=== PATIENT | female | born 1985 ===

== ENCOUNTER 2017-01-03 10:58 | Emergency (ER) | payer OTHER ==
[~2017-01-03] VITALS: Ht 162.6 cm; Wt 71.7 kg
[~2017-01-03 10:58] MED LIST: TESSALON PERLE100 MG PO; ZOFRAN ODT4 MG PO
--- NOTE | 2017-01-03 12:06 | ED GI/GU/ABDOMINAL COMPLAINT ---
History of Present Illness General Chief Complaint: Abdominal Pain/Flank Pain Stated Complaint: TOOK A POSITIVE PREG TEST NOW ABDOMINAL PAIN Source: patient, family, old records Exam Limitations: no limitations Vital Signs & Intake/Output Vital Signs & Intake/Output Vital Signs Date Time Temp Pulse Resp B/P Pulse O2 O2 Flow FiO2 Ox Delivery Rate 01/03 1325 74 18 112/54 100 Room Air 01/03 1114 99.1 80 18 150/83 98 Room Air Allergies Coded Allergies: NO KNOWN ALLERGIES (01/03/17) Reconcile Medications Amoxicillin/Potassium Clav (Augmentin 875-125 Tablet) 875 MG-125 MG TABLET 1 TAB PO BID uti Triage Note: PT STATES THAT SHE TOOK POSITIVE PREGNACY TEST AT HOME 12/26 AND STATES THAT SHE HAS BEEN HAVING INTERMITTANT LOW ABD CRAMPING. DENIES N/V/D DENIES BLEEDING Triage Nurses Notes Reviewed? yes LMP (ages 10-50): 11/24/16 ? Y Is pt currently ? No Onset: Abrupt Duration: week(s): (1), constant, waxing and waning Timing: recent history Quality/Severity: aching, cramping Severity Numbers: 4 Location: suprapubic Radiation: no radiation Activities at Onset: none Prior Abdominal Problems: none No Modifying Factors: none Associated Symptoms: DENIES HPI: This is a 31-year-old female who presents emergency room after she states she took a home positive test on December 26 and planning today of a one-week history of suprapubic crampy abdominal pain nonradiating 4 out of 10. The patient states her last menstrual cycle was November 24 this is her first . She has not established care with an warehouse foreman yet. She denies any urinary symptoms vaginal bleeding or discharge. No fever no chills. No history of abdominal surgeries in the past. She has not taken anything for her pain and there are no modifying factors otherwise she denies any back pain no new sexual partners no history of STD in the past (MILLER EASTMAN) Past History Travel History Traveled to [place] past 21 day No Medical History Any Pertinent Medical History? none Neurological: NONE EENT: NONE Cardiovascular: NONE Respiratory: NONE Gastrointestinal: NONE Hepatic: NONE Renal: NONE Musculoskeletal: NONE Psychiatric: NONE Endocrine: NONE Blood Disorders: NONE Cancer(s): NONE TRAVEL CLERK/Reproductive: NONE Surgical History Surgical History: none Psychosocial History What is your primary language German Tobacco Use: Never used ETOH Use: denies use Illicit Drug Use: denies illicit drug use Family History Hx Contributory? No (MILLER EASTMAN) Review of Systems Review of Systems Constitutional: Reports: see HPI. All Other Systems: Reviewed and Negative Comments Review of systems: See HPI, All other systems negative. Constitutional, no chills no fever, no malaise HEENT: No visual changes no sore throat no congestion, Cardiovascular: No chest pain , no palpitation , Skin, no jaundice no rashes, no change in skin Respiratory: No dyspnea no cough no sputum n GI: No nausea no vomiting, no diarrhea : No dysuria No hematuria, no frequency, no discharge Muscle skeletal: No joint pain, no joint swelling, no back pain, no neck pain, Neurologic: No numbness no headache Psych: No stress Heme/endocrine: No bruising no bleeding Immunology: No lymphadenopathy (MILLER EASTMAN) Physical Exam Physical Exam General Appearance: well developed/nourished, no apparent distress, alert, awake , comfortable Gastrointestinal: soft, tenderness Comments: Well-developed well-nourished person in no acute distress HEENT: Normal EENT exam; PERRL, EOMI, . HEAD is atraumatic. moist mucous membranes. Neck: Supple, normal range of motion Back: Nontender, no CVA tenderness. Full range of motion Cardiovascular: Regular rate and rhythms no murmurs rubs RespiratoryNo respiratory distress. Patient speaking in full complete sentences. Breath sounds clear to auscultation bilaterally: NO W/R/R Abdomen: Soft, mild suprapubic tenderness to palpation, no right lower quadrant tenderness negative Rovsing sign nondistended, no appreciable organomegaly. Normal bowel sounds. No rebound/guarding Extremity: No edema, full range of motion of extremities Neuro: Alert oriented x3, motor sensory normal,. There were no obvious focal neurologic abnormalities. Skin: No appreciable rash on exposed skin, skin is warm and dry. Psych: Mood and affect is normal, memory and judgment is normal. Core Measures ACS in differential dx? No Severe Sepsis Present: No Septic Shock Present: No (MILLER EASTMAN) Progress Differential Diagnosis: appendicitis, biliary colic, bowel obstruction, diverticulitis, ectopic , gastritis, hepatitis, inflamm bowel dis, intrauterine , PID/cervicitis, peptic ulcer, PUD/GERD, perforated viscous, SBO, threatened AB, UTI/pyelo Plan of Care: Orders Procedure Date/time Status Add-on Test (ER Only) 01/03 130 Active CULTURE,URINE 01/03 1205 Active URINE 01/03 1127 Complete URINALYSIS 01/03 1127 Complete HUMAN BETA HCG TITRE 01/03 1127 Complete COMPREHENSIVE METABOLIC PANEL 01/03 1127 Complete CBC WITHOUT DIFFERENTIAL 01/03 1127 Complete RHOGAM WORK-UP 01/03 1127 Complete Laboratory Tests 01/03/17 1205: Urinalysis LIGHT H, Urine Color YEL, Urine Clarity HAZY H, Urine pH 6.0, Ur Specific Duncan 1.010, Urine Protein NEG, Urine Ketones NEG, Urine Nitrite NEG, Urine Bilirubin NEG, Urine Urobilinogen 0.2, Ur Leukocyte Esterase LARGE H, Ur Microscopic SEDIMENT EXAMINED, Urine RBC 1-3, Urine WBC 25-50 H, Ur Epithelial Cells MOD H, Urine Bacteria FEW H, Urine Hemoglobin NEG, Urine Glucose NEG, Urine Test POSITIVE 01/03/17 1204: Anion Gap 11, Estimated GFR > 60, BUN/Creatinine Ratio 10.0, Glucose 92, Calcium 9.7, Total Bilirubin 0.5, AST 18, ALT 16, Alkaline Phosphatase 73, Total Protein 7.6, Albumin 4.1, Globulin 3.5, Albumin/Globulin Ratio 1.2, Beta HCG, Quant 6015.2, CBC w Diff NO MAN DIFF REQ, RBC 5.30, MCV 70.5 L, MCH 23.1 L, RDW 16.9 H, MPV 8.6, Gran % 67.0, Lymphocytes % 25.4, Monocytes % 5.3, Eosinophils % 1.8 , Basophils % 0.5, Absolute Granulocytes 4.8, Absolute Lymphocytes 1.8, Absolute Monocytes 0.4, Absolute Eosinophils 0.1, Absolute Basophils 0, PUBS MCHC 32.8 L Microbiology 01/03 1205 URINE ROUT: Urine Culture - RECD Labs ordered old records reviewed ultrasound ordered Case discussed with I discussed the patient playful per lab results again she denies any urinary complaints I discussed with her at length her ultrasound findings, information is provided for follow-up with TRAVEL CLERK which advised she follow up with today for follow-up evaluation either tomorrow or Sunday, advised return anytime sooner if she develops worsening pain fever chills or any other concerns answered her questions they feel comfortable plan cleared for discharge (MILLER EASTMAN) Diagnostic Imaging: Viewed by Me: Ultrasound. Discussed w/RAD: Ultrasound. Radiology Impression: PATIENT: LETICIA PIÑA PRESENT AGE: 31 PATIENT ACCOUNT NO: [id number] : 85 LOCATION: [facility] ORDERING PHYSICIAN: MILLER KHAN SERVICE DATE: 01/03/17 EXAM TYPE: US - US TRANSVAG EXAMINATION: US TRANSVAGINAL CLINICAL INFORMATION: Supra pubic abdominal pain. Positive last week. COMPARISON: None TECHNIQUE: Transabdominal ultrasound the pelvis is performed. FINDINGS: On transabdominal ultrasound the uterus measures 7.7 cm in length, 4.7 cm AP and 6.02 cm in transverse dimension. Left ovary measures 4.9 x 2.7 x 2.5 cm but normal Doppler flow seen. On transvaginal ultrasound the uterus is homogeneous in echotexture measuring 9.2 cm in length, 4.3 cm in AP and 5.7 cm wide. Cervix measures 2.97 cm in length there is a intrauterine distal with visualization of yolk sac. No pole seen at at this time the gestational sac measures 0.65 and 0.69 cm. Yolk sac measures 0.2 cm. Right ovary measures 2.9 x 1.6 x 2.2 cm and 5.34 mL. Left ovary measures 3.4 x 2.0 x 3.0 cm and 10.6 mL volume. There is a complex anechoic cyst measuring 1.6 x 1.4 x 1.6 cm. IMPRESSION: There is intrauterine distal sac with visualization of yolk sac. The pole is 98 seen due to early right There is a complex corpus luteal cyst in left ovary suspected. Right ovary is unremarkable. There is no free fluid in cul-de- sac. Recommend follow-up after 1-2 weeks. DICTATED BY: GAEL COLMENARES MD DATE/TIME DICTATED:01/03/171327 ELECTRONICS SUPERVISOR:BUDDY DATE/TIME TRANSCRIBED:1327 CONFIDENTIAL, DO NOT COPY WITHOUT APPROPRIATE AUTHORIZATION. < Electronically signed in Other Vendor System> SIGNED BY: GAEL COLMENARES MD 1338 Initial ED EKG: none (MILLER EASTMAN) Departure Departure Time of Disposition: 1358 Disposition: HOME OR SELF CARE Condition: Stable Clinical Impression Primary Impression: Intrauterine Secondary Impressions: UTI (urinary tract infection) Referrals: PATIENT HAS NO PRIMARY CARE DR (PCP/Family) BRISEIDA HARRELL MD Additional Instructions: Follow-up with warehouse foreman Dr. reynolds this week. Augmentin as directed for urinary tract infection this was sent to your [facility] pharmacy in [place]. Tylenol if needed for pain. Return anytime sooner with any concerns including if you developed vaginal bleeding discharge fever chills or any other concerns Departure Forms: Customer Survey General Discharge Information Prescriptions: Current Visit Scripts Amoxicillin/Potassium Clav (Augmentin 875-125 Tablet) 1 TAB PO BID #14 TAB (MILLER EASTMAN) PA/ACCOUNT DIRECTOR Co-Sign Statement Statement: ED Attending supervision documentation- x I saw and evaluated the patient. I have also reviewed all the pertinent lab results and diagnostic results. I agree with the findings and the plan of care as documented in the PA's/ACCOUNT DIRECTOR's documentation. [] I have reviewed the ED Record and agree with the PA's/ACCOUNT DIRECTOR's documentation. [] Additions or exceptions (if any) to the PAs/ACCOUNT DIRECTOR's note and plan are summarized below: [] (STEVEN DICKERSON,LY)
[2017-01-03 12:26] LABS: ABSOLUTE BASOPHIL COUNT 0 /CUMM (0.0-0.2); ABSOLUTE EOSINOPHIL COUNT 0.1 /CUMM (0.0-0.7); ABSOLUTE GRANULOCYTE CT 4.8 /CUMM (1.4-6.5); ABSOLUTE LYMPH COUNT 1.8 /CUMM (1.2-3.4); ABSOLUTE MONOCYTE COUNT 0.4 /CUMM (0.10-0.60); BASOPHIL % 0.5 % (0.0-2.0); EOSINOPHIL % 1.8 % (0-5); HEMATOCRIT 37.4 % (37-47); MEAN CORPUSCULAR HGB 23.1 PG (27.0-31.0); MEAN CORPUSCULAR HGB CONC 32.8 G/DL (33.0-37.0); MEAN CORPUSCULAR VOLUME 70.5 FL (81.0-99.0); MEAN PLATELET VOLUME 8.6 FL (7.4-10.4); PLATELET COUNT 359 /CUMM (130-400); RBC DISTRIBUTION WIDTH 16.9 % (11.5-14.5); WHITE BLOOD CELL COUNT 7.2 /CUMM (4.8-10.8)
[2017-01-03 13:25] VITALS: BP 112/54
--- NOTE | 2017-01-03 13:38 | ULTRASOUND REPORT ---
EXAMINATION: US TRANSVAGINAL CLINICAL INFORMATION: Supra pubic abdominal pain. Positive last week. COMPARISON: None TECHNIQUE: Transabdominal ultrasound the pelvis is performed. FINDINGS: On transabdominal ultrasound the uterus measures 7.7 cm in length, 4.7 cm AP and 6.02 cm in transverse dimension. Left ovary measures 4.9 x 2.7 x 2.5 cm but normal Doppler flow seen. On transvaginal ultrasound the uterus is homogeneous in echotexture measuring 9.2 cm in length, 4.3 cm in AP and 5.7 cm wide. Cervix measures 2.97 cm in length there is a intrauterine distal with visualization of yolk sac. No pole seen at at this time the gestational sac measures 0.65 and 0.69 cm. Yolk sac measures 0.2 cm. Right ovary measures 2.9 x 1.6 x 2.2 cm and 5.34 mL. Left ovary measures 3.4 x 2.0 x 3.0 cm and 10.6 mL volume. There is a complex anechoic cyst measuring 1.6 x 1.4 x 1.6 cm. IMPRESSION: There is intrauterine distal sac with visualization of yolk sac. The pole is 98 seen due to early right There is a complex corpus luteal cyst in left ovary suspected. Right ovary is unremarkable. There is no free fluid in cul-de-sac. Recommend follow-up after 1-2 weeks.
[2017-01-03] MEDS ORDERED: AUGMENTIN 875-1 EACH PO (14:01)
== END 2017-01-03 14:08 ==
LOC: ERH 10:58
PROVIDERS: Physician Assistant Medical
DX: O23.41 Unspecified infection of urinary tract in pregnancy, first trimester (principal); Z3A.00 Weeks of gestation of pregnancy not specified
CPT/HCPCS: 76817; 81001; 81025; 87086

== ENCOUNTER 2017-01-21 22:14 | Emergency (ER) | payer OTHER ==
[~2017-01-21] VITALS: Ht 162.6 cm; Wt 68.0 kg
[~2017-01-21 22:14] MED LIST changes: +AUGMENTIN 875-1 EACH PO
[2017-01-21 22:20] VITALS: BP 113/67
[2017-01-21] MEDS ORDERED: ZOFRAN ODT4 M1 SL (22:42)
--- NOTE | 2017-01-21 22:42 | ED HEADACHE COMPLAINT ---
History of Present Illness General Chief Complaint: Headache Stated Complaint: PT HAS A MIGRAINE Source: patient Exam Limitations: no limitations Vital Signs & Intake/Output Vital Signs & Intake/Output Vital Signs Date Time Temp Pulse Resp B/P Pulse O2 O2 Flow FiO2 Ox Delivery Rate 01/21 2220 98.1 92 18 113/67 95 Room Air ED Intake and Output 01/22 0000 01/21 1200 Intake Total Output Total Balance Patient 150 lb Weight Allergies Coded Allergies: NO KNOWN ALLERGIES (01/03/17) Reconcile Medications Ondansetron (Zofran Odt) 4 MG TAB.RAPDIS 1 TAB SL TID nausea Triage Note: PT 7 WEEKS TO TRIAGE WITH C/O HEADACHE 08/14, NAUSEA SINCE YESTERDAY. PT TOOK TYLENOL TODAY WITH NO PAIN RELIEF. OBGYN VISIT ON 01/18. . Triage Nurses Notes Reviewed? yes Onset: Gradual Duration: day(s):, waxing and waning Timing: recent history Quality/Severity: moderate Head Injury Location: global Modifying Factors: Improves With: medication, rest. Associated Symptoms: headache, mild nausea : Yes Patient currently breastfeeds: No HPI: 31 yo woman 7 weeks , h/o migraine, presents with headache consistent with prior migraines, associated with nausea, sound sensitivity, diffuse headache x 1-2 days. She notes no abdominal cramps, vaginal bleeding, dysuria. She is otherwise well. Past History Travel History Traveled to [place] past 21 day No Medical History Any Pertinent Medical History? see below for history Neurological: NONE EENT: NONE Cardiovascular: NONE Respiratory: NONE Gastrointestinal: NONE Hepatic: NONE Renal: NONE Musculoskeletal: NONE Psychiatric: NONE Endocrine: NONE Blood Disorders: NONE Cancer(s): NONE CABLE SUPERVISOR/Reproductive: NONE Surgical History Surgical History: none Psychosocial History What is your primary language Georgian Tobacco Use: Never used Family History Hx Contributory? No Review of Systems Review of Systems Constitutional: Reports: no symptoms. Eyes: Reports: no symptoms. Ears, Nose, Throat, Mouth: Reports: no symptoms. Respiratory: Reports: no symptoms. Cardiovascular: Reports: no symptoms. Gastrointestinal/Abdominal: Reports: no symptoms. Genitourinary: Reports: no symptoms. Musculoskeletal: Reports: no symptoms. Skin: Reports: no symptoms. Neurological/Psychological: Reports: no symptoms. Hematologic/Endocrine: Reports: no symptoms. Endocrine: Reports: no symptoms. Immunologic/Allergic: Reports: no symptoms. All Other Systems: Reviewed and Negative Physical Exam Physical Exam General Appearance: well developed/nourished, mild distress Head: atraumatic, normal appearance, diffuse scalpe muscular tenderness to palpation. Eyes: Bilateral: normal appearance. Ears, Nose, Throat: normal pharynx, normal ENT inspection Neck: normal inspection, supple, full range of motion Respiratory: normal breath sounds, chest non-tender, no respiratory distress, quiet respiration, lungs clear Cardiovascular: regular rate/rhythm Gastrointestinal: normal bowel sounds, soft, non-tender, no organomegaly Back: normal inspection Extremities: normal inspection, normal capillary refill, normal range of motion, no edema Psychiatric: awake, alert, oriented x 3 Cranial Nerves: normal hearing, normal speech, PERRL Coordination/Gait: normal finger to nose, normal gait Motor/Sensory: no motor/sensory deficits Reflexes: 1+: bicep (R), bicep (L). Skin: intact, normal color, warm/dry Core Measures Severe Sepsis Present: No Septic Shock Present: No Progress Differential Diagnosis: cluster HINES, meningitis, musculoskeletal pain, tension HINES Plan of Care: pt given supportive medications, safe in ... advocated close follow up with pmd and automatic quilling machine operator. Departure Departure Disposition: HOME OR SELF CARE Condition: Stable Clinical Impression Primary Impression: Headache Secondary Impressions: Referrals: PATIENT HAS NO PRIMARY CARE DR (PCP/Family) Departure Forms: Customer Survey General Discharge Information Prescriptions: Current Visit Scripts Ondansetron (Zofran Odt) 1 TAB SL TID #10 TAB Comments pt given acetaminophen and zofran... encouraged close follow up with pmd and automatic quilling machine operator.
== END 2017-01-21 23:09 ==
LOC: ERH 22:14
DX: O99.89 Other specified diseases and conditions complicating pregnancy, childbirth and the puerperium (principal); R51 Headache; Z3A.01 Less than 8 weeks gestation of pregnancy
CPT/HCPCS: J3101

== ENCOUNTER 2017-02-25 22:41 | Emergency (ER) | payer OTHER ==
[~2017-02-25] VITALS: Ht 160 cm; Wt 68.0 kg
[~2017-02-25 22:41] MED LIST changes: +ZOFRAN ODT4 M1 SL
[2017-02-25 22:51] VITALS: BP 109/71
[2017-02-25 23:24] LABS: ABSOLUTE BASOPHIL COUNT 0 /CUMM (0.0-0.2); ABSOLUTE EOSINOPHIL COUNT 0.1 /CUMM (0.0-0.7); ABSOLUTE LYMPH COUNT 1.6 /CUMM (1.2-3.4); ABSOLUTE MONOCYTE COUNT 0.5 /CUMM (0.10-0.60); BASOPHIL % 0.2 % (0.0-2.0); EOSINOPHIL % 1.3 % (0-5); GRANULOCYTE % 72.3 % (42.2-75.2); HEMATOCRIT 33.6 % (37-47); MEAN CORPUSCULAR HGB 23.5 PG (27.0-31.0); MEAN CORPUSCULAR HGB CONC 32.4 G/DL (33.0-37.0); MEAN CORPUSCULAR VOLUME 72.4 FL (81.0-99.0); MEAN PLATELET VOLUME 8.7 FL (7.4-10.4); PLATELET COUNT 296 /CUMM (130-400); RBC DISTRIBUTION WIDTH 17.1 % (11.5-14.5); RED BLOOD CELL CT 4.64 /CUMM (4.20-5.40); WHITE BLOOD CELL COUNT 8.2 /CUMM (4.8-10.8)
--- NOTE | 2017-02-26 00:26 | ED GI/GU/ABDOMINAL COMPLAINT ---
History of Present Illness General Chief Complaint: Female Urogenital Problems Stated Complaint: PT IS 3MONTHS AND BLOOD SPOTS Source: patient Exam Limitations: no limitations Vital Signs & Intake/Output Vital Signs & Intake/Output Vital Signs Date Time Temp Pulse Resp B/P B/P Pulse O2 O2 Flow FiO2 Mean Ox Delivery Rate 02/25 2251 99.1 86 20 109/71 99 Room Air ED Intake and Output 02/26 0000 02/25 1200 Intake Total Output Total Balance Patient 150 lb Weight Weight Reported by Patient Measurement Method Allergies Coded Allergies: No Known Allergies (02/25/17) Reconcile Medications Ondansetron (Zofran Odt) 4 MG TAB.RAPDIS 1 TAB SL TID nausea Triage Note: TRIAGE: PT TO ER C/C LOW ABD PAIN AND VAGINAL BLEEDING. ONSET OF S/S THIS MORNING. PAIN HAS BEEN CONSTANT SINCE ONSET AND WORSENING SINCE 18:00. ALSO REPORTS PAIN FROM RUQ ABD INTO R FLANK AREA, INTERMITTENT X 3 DAYS BUT MORE CONSTANT X 2 DAYS. HAS HAD SPOTTING BLOOD, BRIGHT RED IN COLOR. HAS BEEN USING [facility] FOR SAME. PT CURRENTLY 12 WEEKS , LMP 11/24/2016, DUE DATE 09/01/2017. . RESOLUTION REP DR COLEMAN. REPORTS ALSO HX OF SWELLING TO [facility] 6 YEARS AGO AND FELT SIMILIAR PAIN TO RUQ ABD INTO BACK. SPOKE WITH RENZO SON IN CBC, PT TO REMAIN IN ER FOR EVAL. Triage Nurses Notes Reviewed? yes ? y Is pt currently ? No Onset: Gradual Duration: hour(s):, waxing and waning Timing: recent history Quality/Severity: cramping Location: vaginal Radiation: no radiation Activities at Onset: none Prior Abdominal Problems: none Modifying Factors: Improves With: rest. Associated Symptoms: vaginal bleeding HPI: 31 yo woman 3 months with normally progressing , presents with lower abdominal cramps and vaginal bleeding that began several hours ago. She notes the bleeding was bright red, with a few clots, 4-5 pads total. She notes that the bleeding is subsiding. She shares that her prior u/s have been normal. She is otherwise well, without dysuria, chills, fever, other vaginal discharge. Past History Travel History Traveled to [place] past 21 day No Medical History Any Pertinent Medical History? see below for history Neurological: NONE EENT: NONE Cardiovascular: NONE Respiratory: NONE Gastrointestinal: NONE Hepatic: NONE Renal: NONE Musculoskeletal: NONE Psychiatric: NONE Endocrine: NONE Blood Disorders: NONE Cancer(s): NONE SOCIAL WORK THERAPIST/Reproductive: NONE Surgical History Surgical History: none Psychosocial History What is your primary language Azeri Tobacco Use: Never used ETOH Use: denies use Illicit Drug Use: denies illicit drug use Family History Hx Contributory? No Review of Systems Review of Systems Constitutional: Reports: no symptoms. EENTM: Reports: no symptoms. Respiratory: Reports: no symptoms. Cardiovascular: Reports: no symptoms. GI: Reports: no symptoms. Genitourinary: Reports: no symptoms. Musculoskeletal: Reports: no symptoms. Skin: Reports: no symptoms. Neurological/Psychological: Reports: no symptoms. Hematologic/Endocrine: Reports: no symptoms. Immunologic/Allergic: Reports: no symptoms. All Other Systems: Reviewed and Negative Physical Exam Physical Exam General Appearance: well developed/nourished, mild distress Head: atraumatic, normal appearance Eyes: Bilateral: normal appearance. Ears, Nose, Throat, Mouth: hearing grossly normal Neck: normal inspection Respiratory: normal breath sounds, chest non-tender, no respiratory distress, quiet respiration, lungs clear Cardiovascular: regular rate/rhythm Gastrointestinal: normal bowel sounds, soft, non-tender Pelvic: pt declines Back: normal inspection Extremities: normal range of motion Neurologic/Psych: no motor/sensory deficits, awake, alert, oriented x 3 Skin: intact Comments: bedside u/s by edmd... movement is vigorous with heart movement approximately 150 bpm... ample amniotic fluid. Core Measures ACS in differential dx? No Severe Sepsis Present: No Septic Shock Present: No Progress Differential Diagnosis: threatened miscarriage vs other. Plan of Care: Orders Procedure Date/time Status HUMAN BETA HCG TITRE 02/25 2253 Complete COMPREHENSIVE METABOLIC PANEL 02/25 2253 Complete CBC WITHOUT DIFFERENTIAL 02/25 2253 Complete Laboratory Tests 02/25/17 2312: Anion Gap 12, Estimated GFR > 60, BUN/Creatinine Ratio 7.5, Glucose 89, Calcium 9.3, Total Bilirubin 0.3, AST 16, ALT 26, Alkaline Phosphatase 57, Total Protein 6.7, Albumin 3.5, Globulin 3.2, Albumin/Globulin Ratio 1.1, Beta HCG, Quant 17225.0, CBC w Diff NO MAN DIFF REQ, RBC 4.64, MCV 72.4 L, MCH 23.5 L, RDW 17.1 H, MPV 8.7, Gran % 72.3, Lymphocytes % 19.6 L, Monocytes % 6.6, Eosinophils % 1.3, Basophils % 0.2, Absolute Granulocytes 6.0, Absolute Lymphocytes 1.6, Absolute Monocytes 0.5, Absolute Eosinophils 0.1, Absolute Basophils 0, PUBS MCHC 32.4 L Initial ED EKG: none Departure Departure Disposition: HOME OR SELF CARE Condition: Stable Clinical Impression Primary Impression: Threatened miscarriage Referrals: TRENT MCCONNELL MD (PCP/Family) Departure Forms: Customer Survey General Discharge Information Comments 02/26/17, 0:36am... pt comfortable in bed... labs benign, blood type b+... pt declines pelvic exam... bedside u/s by edmd... ample movement with heart at [address] pt [address] mcconnell later today.
== END 2017-02-26 00:57 ==
LOC: ERH 22:41
PROVIDERS: Pediatrics
DX: O20.0 Threatened abortion (principal)

== ENCOUNTER 2017-03-28 21:29 | Emergency (ER) | payer OTHER ==
--- NOTE | 2017-03-28 22:02 | ED GI/GU/ABDOMINAL COMPLAINT ---
History of Present Illness General Chief Complaint: Female Urogenital Problems Stated Complaint: 16 WKS PREG, ABD. PAIN, VAGINAL BLEEDING Source: patient, family Exam Limitations: no limitations Vital Signs & Intake/Output Vital Signs & Intake/Output Vital Signs Date Time Temp Pulse Resp B/P B/P Pulse O2 O2 Flow FiO2 Mean Ox Delivery Rate 03/28 2253 72 20 101/60 98 03/28 2140 98.0 77 20 108/71 Allergies Coded Allergies: No Known Allergies (02/25/17) Reconcile Medications No Known Home Medications Triage Note: PER PT ABD PAIN, BACK PAIN AND VAGINAL BLEEDING 16 WEEKS TOOK TYLENO LAT HOME LAST AT 1430 Triage Nurses Notes Reviewed? yes ? Y Is pt currently ? No Onset: Abrupt Duration: hour(s): (few) Timing: multiple episodes today Quality/Severity: mild, moderate Location: vaginal Activities at Onset: transvaginal u/s No Modifying Factors: none Associated Symptoms: ANXIETY HPI: This is a 31-year-old female at 16 weeks bracket (LMP 11/24) gestation and presents to the ER for chief complaint of vaginal bleeding after her transvaginal ultrasound today. She reported some lower abdominal cramping, some vaginal spotting and some brownish discharge. She called Dr. Mcconnell's office and asked her to come back tomorrow to the office for reevaluation. She was also instructed for pelvic rest and to not lift any heavy materials. The ultrasound in the office today showed that everything was fine according to the patient. Past History Travel History Traveled to [place] past 21 day No Medical History Any Pertinent Medical History? 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 No Review of Systems Review of Systems Constitutional: Denies: see HPI, fever. EENTM: Reports: no symptoms. Respiratory: Denies: cough, short of breath. Cardiovascular: Denies: chest pain. GI: Denies: abdominal pain, nausea, vomiting. Genitourinary: Reports: see HPI (VAGINAL SPOTTING). Musculoskeletal: Reports: no symptoms. Skin: Reports: no symptoms. Neurological/Psychological: Reports: anxiety. Hematologic/Endocrine: Reports: bleeding. Denies: bruising. Immunologic/Allergic: Denies: splenectomy. All Other Systems: Reviewed and Negative Physical Exam Physical Exam General Appearance: well developed/nourished, alert, awake, anxious Head: atraumatic, normal appearance Eyes: Bilateral: normal appearance, PERRL, EOMI. Ears, Nose, Throat, Mouth: hearing grossly normal, moist mucous membrane Neck: normal inspection, supple, full range of motion Respiratory: normal breath sounds, chest non-tender, no respiratory distress Cardiovascular: regular rate/rhythm Peripheral Pulses: 2+ radial (R), 2+ radial (L) Gastrointestinal: soft, gravid, NONTENDER Back: normal inspection, normal range of motion Extremities: normal range of motion, evidence of injury Neurologic/Psych: awake, alert, oriented x 3 Core Measures ACS in differential dx? No Severe Sepsis Present: No Septic Shock Present: No Progress Differential Diagnosis: threatened AB, SUBCHORIONIC HEMORRHAGE Plan of Care: Orders Procedure Date/time Status HUMAN BETA HCG TITRE 03/28 2131 Complete COMPREHENSIVE METABOLIC PANEL 03/28 2131 Complete CBC WITHOUT DIFFERENTIAL 03/28 2131 Complete Current Medications Sig/Arnold Start time Last Medication Dose Stop Time Status Admin Hydromorphone HCl 1 MG ONCE ONE 03/28 2230 CAN (Dilaudid) 03/28 2231 Ondansetron HCl 4 MG ONCE ONE 03/28 2230 CAN (Zofran) 03/28 2231 Laboratory Tests 03/28/170: Anion Gap 10, Estimated GFR > 60, BUN/Creatinine Ratio 13.3, Glucose 81, Calcium 9.1, Total Bilirubin 0.2, AST 16, ALT 30, Alkaline Phosphatase 68, Total Protein 6.8, Albumin 3.5, Globulin 3.3, Albumin/Globulin Ratio 1.1, Beta HCG, Quant 81608.0, CBC w Diff NO MAN DIFF REQ, RBC 4.37, MCV 71.9 L, MCH 23.6 L, RDW 16.3 H, MPV 8.2, Gran % 69.6, Lymphocytes % 21.5, Monocytes % 6.7, Eosinophils % 1.8, Basophils % 0.4, Absolute Granulocytes 5.5, Absolute Lymphocytes 1.7, Absolute Monocytes 0.5, Absolute Eosinophils 0.1, Absolute Basophils 0, PUBS MCHC 32.9 L 03/28/172130: Urine Color Cancelled, Urine Clarity Cancelled, Urine pH Cancelled, Ur Specific [place] Cancelled, Urine Protein Cancelled, Urine Ketones Cancelled, Urine Nitrite Cancelled, Urine Bilirubin Cancelled, Urine Urobilinogen Cancelled, Ur Leukocyte Esterase Cancelled, Ur Microscopic Cancelled, Urine Hemoglobin Cancelled, Urine Glucose Cancelled ULTRASOUND UNAVAILABLE Transabdominal ultrasound performed at bedside Placenta is visible Good movement with visualized cardiac activity good amount of amniotic fluid PATIENT IS B POS (BRANDI DICKERSON,TATIANA) Initial ED EKG: none Departure Departure Time of Disposition: 2241 Disposition: HOME OR SELF CARE Condition: Stable Clinical Impression Primary Impression: Threatened Referrals: TRENT MCCONNELL MD (PCP/Family) Additional Instructions: PELVIC REST - NO TAMPONS OR INTERCOURSE NO HEAVY LIFTING SEE DR MCCONNELL IN THE OFFICE TOMORROW RETURN IF WORSE Departure Forms: Customer Survey General Discharge Information Prescriptions: Current Visit Scripts No Known Home Medications
[2017-03-28 22:33] LABS: ABSOLUTE BASOPHIL COUNT 0 /CUMM (0.0-0.2); ABSOLUTE EOSINOPHIL COUNT 0.1 /CUMM (0.0-0.7); ABSOLUTE GRANULOCYTE CT 5.5 /CUMM (1.4-6.5); ABSOLUTE LYMPH COUNT 1.7 /CUMM (1.2-3.4); ABSOLUTE MONOCYTE COUNT 0.5 /CUMM (0.10-0.60); BASOPHIL % 0.4 % (0.0-2.0); EOSINOPHIL % 1.8 % (0-5); GRANULOCYTE % 69.6 % (42.2-75.2); HEMATOCRIT 31.4 % (37-47); MEAN CORPUSCULAR HGB 23.6 PG (27.0-31.0); MEAN CORPUSCULAR HGB CONC 32.9 G/DL (33.0-37.0); MEAN CORPUSCULAR VOLUME 71.9 FL (81.0-99.0); MEAN PLATELET VOLUME 8.2 FL (7.4-10.4); PLATELET COUNT 334 /CUMM (130-400); RBC DISTRIBUTION WIDTH 16.3 % (11.5-14.5); RED BLOOD CELL CT 4.37 /CUMM (4.20-5.40); WHITE BLOOD CELL COUNT 7.9 /CUMM (4.8-10.8)
[2017-03-28 22:53] VITALS: BP 101/60
== END 2017-03-28 22:55 ==
LOC: ERH 21:29
PROVIDERS: Physician Assistant
DX: O20.0 Threatened abortion (principal)

== ENCOUNTER 2017-04-09 22:04 | Emergency (ER) | payer OTHER ==
[2017-04-09] MEDS ORDERED: FERRALET 90 TA1 EACH PO (23:05)
[2017-04-09] MEDS ORDERED: ACETAMINOPHEN500 M4 PO (23:06)
--- NOTE | 2017-04-09 23:24 | ED GENERAL ADULT ---
History of Present Illness General Chief Complaint: General Adult Stated Complaint: LOW ABD PAIN, "KIDNEY PAIN", SORE THROAT Source: patient, family, old records Exam Limitations: no limitations Vital Signs & Intake/Output Vital Signs & Intake/Output Vital Signs Date Time Temp Pulse Resp B/P B/P Pulse O2 O2 Flow FiO2 Mean Ox Delivery Rate 04/10 0054 99.3 84 18 109/71 98 Room Air 04/09 2223 98.7 100 22 100/57 99 ED Intake and Output 04/10 0000 04/09 1200 Intake Total Output Total 100 Balance -100 Output, Urine 100 Allergies Coded Allergies: No Known Allergies (02/25/17) Reconcile Medications Acetaminophen 500 MG TABLET 2 TAB PO BID PRN PAIN (Reported) Amoxicillin 500 MG CAPSULE 1 CAP PO TID URINE INFECTION Iron Carb,Gl/FA/B12/C/Docusate (Ferralet 90 Tablet) 90 MG-1 MG-12 MCG-120 MG-50 MG TABLET 1 TAB PO DAILY SUPPLEMENT (Reported) Triage Note: PER PT LOW ABD PAIN, NO VAGINAL DISCHARGE AND SORE THROAT AND KIDNEY PAIN, 19 WEEKS . NO FEVERS NO DISCHARGE. Triage Nurses Notes Reviewed? yes : Yes Patient currently breastfeeds: No HPI: Patient presents to the emergency department complaining of dysuria and urinary frequency. Patient is 19 weeks . 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 The symptoms started 3 days ago. There are no fevers chills. There is no nausea or vomiting. Patient states that she is getting pain in the right flank. Patient has not noticed any hematuria. The dysuria and burning in nature and is worse when she urinates. There is no radiation. At its worst pain is 6 out of 10. Past History Travel History Traveled to [place] past 21 day No Medical History Any Pertinent Medical History? 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 No Review of Systems Review of Systems Constitutional: Reports: no symptoms. Respiratory: Reports: no symptoms. Cardiovascular: Reports: no symptoms. GI: Reports: see HPI. Genitourinary: Reports: see HPI, dysuria, frequency. Musculoskeletal: Reports: see HPI, back pain. Neurological/Psychological: Reports: no symptoms. Immunologic/Allergic: Reports: no symptoms. Physical Exam Physical Exam General Appearance: well developed/nourished, alert, awake, anxious, mild distress Head: atraumatic, normal appearance Eyes: Bilateral: PERRL, EOMI. Ears, Nose, Throat: normal pharynx, normal ENT inspection, hearing grossly normal Neck: normal inspection, supple, full range of motion Respiratory: normal breath sounds, chest non-tender, no respiratory distress, lungs clear Cardiovascular: regular rate/rhythm, normal peripheral pulses Gastrointestinal: normal bowel sounds, soft, non-tender, no organomegaly Back: normal inspection, normal range of motion, NO CVA TENDERNESS Extremities: normal inspection, normal capillary refill, normal range of motion, no edema Neurologic/Psych: no motor/sensory deficits, awake, alert, oriented x 3, normal gait, normal mood/affect Core Measures ACS in differential dx? No CVA/TIA Diagnosis: No Severe Sepsis Present: No Septic Shock Present: No Progress Differential Diagnoses I considered the following diagnoses in my evaluation of the patient: [UTI, PYELONEPHRITIS] Plan of Care: Orders Procedure Date/time Status Straight Cath 04/09 2328 Active URINALYSIS 04/09 2328 Complete COMPREHENSIVE METABOLIC PANEL 04/09 2328 Complete CBC WITHOUT DIFFERENTIAL 04/09 2328 Complete URINALYSIS 04/09 2224 Complete Laboratory Tests 04/10/17 0330: Troponin I Cancelled 04/09/17 2350: Urinalysis MOD H, Urine Color YEL, Urine Clarity HAZY H, Urine pH 7.0, Ur Specific [place] 1.020, Urine Protein NEG, Urine Ketones TRACE H, Urine Nitrite NEG, Urine Bilirubin NEG, Urine Urobilinogen 0.2, Ur Leukocyte Esterase LARGE H , Ur Microscopic SEDIMENT EXAMINED, Urine WBC 15-25 H, Ur Epithelial Cells MOD H, Urine Bacteria MOD H, Urine Mucus MOD H, Urine Hemoglobin NEG, Urine Glucose NEG 04/09/17 2340: Anion Gap 7, Estimated GFR > 60, BUN/Creatinine Ratio 12.5, Glucose 74, Calcium 9.2, Total Bilirubin 0.3, AST 18, ALT 23, Alkaline Phosphatase 66, Total Protein 6.0 L, Albumin 3.0 L, Globulin 3.0, Albumin/Globulin Ratio 1.0 L, CBC w Diff NO MAN DIFF REQ, RBC 4.20, MCV 73.4 L, MCH 23.8 L, RDW 17.7 H, MPV 8.1, Gran % 71.9, Lymphocytes % 19.6 L, Monocytes % 6.3, Eosinophils % 2.0, Basophils % 0.2, Absolute Granulocytes 5.9, Absolute Lymphocytes 1.6, Absolute Monocytes 0.5 , Absolute Eosinophils 0.2, Absolute Basophils 0, PUBS MCHC 32.4 L 04/09/17 2245: Urine Color YEL, Urine Clarity HAZY H, Urine pH 7.0, Ur Specific [place] 1.020, Urine Protein TRACE H, Urine Ketones 15 H, Urine Nitrite NEG, Urine Bilirubin NEG, Urine Urobilinogen 1.0, Ur Leukocyte Esterase MOD H, Ur Microscopic SEDIMENT EXAMINED, Urine WBC 15-25 H, Ur Epithelial Cells MANY H, Urine Crystals 1+ CA OX H, Urine Bacteria MANY H, Urine Hemoglobin NEG, Urine Glucose NEG Initial ED EKG: none Comments: HEART RATE 158 Departure Departure Disposition: HOME OR SELF CARE Condition: Stable Clinical Impression Primary Impression: UTI (urinary tract infection) Qualifiers: Urinary tract infection type: acute cystitis Hematuria presence: without hematuria Qualified Code: N30.00 - Acute cystitis without hematuria Referrals: MONIKA MCCONNELL MDMA PATIENT HAS NO PRIMARY CARE DR (PCP/Family) Additional Instructions: TAKE ANTIBIOTIC PRESCRIBED FOLLOW UP WITH DR. MCCONNELL RETURN FOR ANY CONCERNS Departure Forms: Customer Survey General Discharge Information Prescriptions: Current Visit Scripts Amoxicillin 1 CAP PO TID #30 CAP Critical Care Note Critical Care Note Critical Care Time: non-applicable
[2017-04-09 23:54] LABS: ABSOLUTE BASOPHIL COUNT 0 /CUMM (0.0-0.2); ABSOLUTE EOSINOPHIL COUNT 0.2 /CUMM (0.0-0.7); ABSOLUTE GRANULOCYTE CT 5.9 /CUMM (1.4-6.5); ABSOLUTE LYMPH COUNT 1.6 /CUMM (1.2-3.4); ABSOLUTE MONOCYTE COUNT 0.5 /CUMM (0.10-0.60); BASOPHIL % 0.2 % (0.0-2.0); GRANULOCYTE % 71.9 % (42.2-75.2); HEMATOCRIT 30.8 % (37-47); MEAN CORPUSCULAR HGB 23.8 PG (27.0-31.0); MEAN CORPUSCULAR HGB CONC 32.4 G/DL (33.0-37.0); MEAN CORPUSCULAR VOLUME 73.4 FL (81.0-99.0); MEAN PLATELET VOLUME 8.1 FL (7.4-10.4); PLATELET COUNT 297 /CUMM (130-400); RBC DISTRIBUTION WIDTH 17.7 % (11.5-14.5); WHITE BLOOD CELL COUNT 8.2 /CUMM (4.8-10.8)
[2017-04-10] MEDS ORDERED: AMOXICILLIN500 M2 PO (00:46)
[2017-04-10 00:54] VITALS: BP 109/71
== END 2017-04-10 01:00 ==
LOC: ERH 22:04
PROVIDERS: Emergency Medicine
DX: O23.42 Unspecified infection of urinary tract in pregnancy, second trimester (principal)
CPT/HCPCS: 81001